=== PATIENT | female | born 2000 | race Caucasian/White ===

== ENCOUNTER 2023-03-22 14:41 | Emergency (ER) | payer OTHER, SELFPAY ==
[2023-03-22 14:43] VITALS: BP 123/79; PULSE 96; RESP 18; TEMP 36.1; O2SAT 99; BMI 21.3
--- NOTE | 2023-03-22 15:30 | EDS_ITS ---
HPI HPI - GI History of Present Illness Chief Complaint: Flank Pain Informant: patient Narrative Narrative: Patient is a 22-year-old female presenting with right-sided flank pain. Patient was diagnosed via telehealth for a UTI 2 days ago. She was started on Macrobid. She initially went to [facility] but they thought her some of her symptoms started more like COVID and she had a positive COVID test. Those symptoms started 1 week ago. Because of this they would not evaluate her for her UTI and recommended the telehealth appointment. Patient states she has been taking the Macrobid but has continued to have dysuria, frequency, urgency, sensation of incomplete emptying and is now developing some right flank pain. She was told on telemetry with appointment that if she develops flank pain or shortness of breath she should go to emergency room. She initially went to urgent care today with and they instructed her to come to our emergency room. These UTI symptoms and going on for about 2 weeks. Patient states normally if the symptoms start they will self resolve after couple days. She denies any new fever. She was to have a fever about a week ago when her COVID symptoms were started. Denies any blood in her urine. Denies any abnormal vaginal discharge. She is on oral contraceptives is on the last day of that before she starts taking the placebo week. She does not think she is . Denies any associated rash. Denies any nausea, vomiting or bowel changes. She notes that she has had some mild sensation of not taking a deep breath and getting more winded when she walks up or 4 flights of stairs to get to her dormitory room but states she had similar symptoms like this the last time she had COVID as well. She does have an inhaler that she uses as needed. [facility] Medical History Kidney stones Home Medications sulfamethoxazole 800 mg-trimethoprim 160 mg tablet (Bactrim DS) 1 tab PO BID 10 days #20 tabs 03/22/23 [Rx Last Taken Unknown] Allergy/AdvReac Type Severity Reaction Status Date / Time cefdinir [From Omnicef] Allergy Swelling Verified 03/22/23 14:44 Family History Grandfather Cancer Surgical History no surgical history Social History household members: friend(s) housing: other current occupational status: student Smoking Status: Never smoker ROS ROS ED Constitutional Constitutional ED: Denies chills or fever(s) Cardiovascular Cardiovascular: Denies chest pain Respiratory/Chest Respiratory/Chest: Denies cough Gastrointestinal Gastrointestinal: Reports abdominal pain; Denies constipation, diarrhea, nausea or vomiting Genitourinary Genitourinary ED: Reports dysuria and urinary frequency; Denies hematuria Musculoskeletal Musculoskeletal: Denies arthralgias or myalgias Integumentary Denies rash Neurologic Neurologic: Denies headache(s) Psychiatric Psychiatric: Denies anxiety Hematologic/Lymphatic Hematologic/Lymphatic: Denies easy bleeding EXAM Physical Exam Const Vital Signs: 03/22/23 14:43 Temperature 97 F L Temperature Source Temporal Pulse Rate 96 Respiratory Rate 18 Blood Pressure 123/79 H Blood Pressure Mean 93 Pulse Ox 99 Oxygen Delivery Method Room Air Positive well nourished and well developed General Appearance ED: well developed and NAD Eyes PERRL and EOMs intact bilaterally Neck supple Resp normal respiratory effort and clear to auscultation bilaterally Auscultation: Negative for rhonchi or wheezes Cardio regular rate, regular rhythm and no murmurs GI non-tender Auscultation: normoactive bowel sounds Palpation: soft; Negative for guarding or rigid Back/Spine no CVA tenderness Back/Spine Narrative: Patient points just below her right CVA as the area of her pain however it is not reproducible with direct palpation Extremity full ROM General Extremety ED: Negative for edema General Extremity: Negative for edema Neuro moves all extremities Sensorium / Orientation: alert Psych mental status grossly normal and thought process normal Skin no wounds Rashes: no rashes MDM MDM MDM Narrative Medical decision making narrative: Patient evaluated for developing right flank pain in the setting of clinically diagnosed UTI via telehealth. She has been on not quite 48 hours of Macrobid. Vital signs are normal. Patient examined. Benign. She does not have a leukocytosis, SHANIA or significant electrolyte derangement. Her testing is mildly low at 3.3 which is informed and counseled to add in some more high potassium food to her diet. Urinalysis is consistent with UTI. In the setting of flank pain will treat for pyelonephritis and switch from Macrobid to Bactrim (has an allergy to cephalosporins). Is given first dose in the emergency room. Given r eturn precautions. Is given Toradol for pain control with improvement. Is instructed to alternate ibuprofen and Tylenol for symptom relief. Presentation is not consistent with an obstructing stone and I do not think she requires imaging of the kidneys at this time. Patient did test positive for COVID a week ago I do not think her presentation is a complication from COVID infection. Lab Data Attestation: I reviewed the patient's lab results. Labs: Laboratory Results - last 24 hr 03/22/23 03/22/23 14:55 16:00 WBC 6.5 RBC 4.04 L Hgb 12.3 Hct 36.0 L MCV 89.1 MCH 30.4 MCHC 34.2 RDW Std Deviation 37.6 RDW Coeff of Mily 11.6 Plt Count 287 MPV 9.9 Immature Gran % (Auto) 0.200 Neut % (Auto) 63.2 Lymph % (Auto) 28.3 [place] % (Auto) 7.5 Eos % (Auto) 0.5 Baso % (Auto) 0.3 Absolute Neuts (auto) 4.1 Absolute Lymphs (auto) 1.84 Nucleated RBC % 0 Sodium 137 Potassium 3.3 L Chloride 105 Carbon Dioxide 27.0 Anion Gap 5 BUN 8 Creatinine 0.82 Estim Creat Clear Calc 101.60 Est GFR (MDRD) Af Amer 112 Est GFR (MDRD) Non-Af 93 BUN/Creatinine Ratio 9.7 L Glucose 101 Calcium 9.0 Total Bilirubin 0.50 AST 16 ALT 26 Alkaline Phosphatase 92 Total Protein 7.8 Albumin 3.2 Globulin 4.6 H Albumin/Globulin Ratio 0.7 L Urine Color Yellow Urine Clarity Sl. Cloudy Urine pH 6.5 Ur Specific [place] 1.010 Urine Protein 30 H Urine Glucose (UA) Normal Urine Ketones Negative Urine Occult Blood 10 H Urine Nitrite Negative Urine Bilirubin Negative Urine Urobilinogen Normal Ur Leukocyte Esterase 500 H Urine RBC 0-5 SEEN Urine WBC 5-10 SEEN Ur Squamous Epith Cells 0-5 SEEN Calcium Oxalate Crystal RARE Urine Bacteria RARE Urine Mucus RARE Urine Test Negative Discharge Plan Triage Chief Complaint: Flank Pain ED Provider: Shahnaz Oliveira Dx/Rx/DC Orders Clinical Impression: Pyelonephritis of right kidney Instructions: ED Pyelonephritis, Female (Adult) Prescriptions: New sulfamethoxazole-trimethoprim [Bactrim DS] 800-160 mg tablet 1 tab PO BID 10 Days Qty: 20 0RF Primary Care Provider: Care Physician,No Primary Referrals: Jordan Lockwood MD [Med Staff - Telephone Service Adviser] - As Needed Care Physician,No Primary [Primary Care Provider] - Activity Restrictions/Additional Instructions: stop taking the Macrobid and start taking this antibiotic instead (Bactrim). It is only twice a day. Drink pleanty of fluids and eat fruits/vegetables with high potassium and his potassium was mildly low. Disposition Disposition: Home, Self Care
[2023-03-22 15:33] LABS: Absolute Lymphocyte Count 1.84 X10^3/uL (0.83-4.51); Absolute Neutrophil Count 4.1 X10^3/uL (2.0-7.7); Basophil# 0.02 X10^3/uL; Basophil% 0.3 % (0-1); Eosinophil# 0.03 X10^3/uL; Eosinophils% 0.5 % (0-5); Hemoglobin 12.3 g/dL (12.0-15.0); Lymphocyte # 1.84 X10^3/ul (0.83-4.51); Lymphocyte % 28.3 % (19-41); Mean Corp Hgb Conc 34.2 g/dL (32-36); Mean Corpuscular Hgb 30.4 pg (27.0-32.0); Mean Corpuscular Volume 89.1 fL (81-99); Mean Platelet Vol. 9.9 fl (6.2-12.0); Monocyte# 0.49 X10^3/uL; Monocyte% 7.5 % (0-10); NRBC Flagged by Analyzer 0 % (0-5); Neutrophil # 4.12 X10^3/uL (2.7-7.7); Neutrophil % 63.2 % (47-70); Platelet Count 287 K/mm3 (150-450); RBC Distribution Width CV 11.6 % (11.6-14.6); RBC Distribution Width SD 37.6 fl (35.1-43.9); Red Blood Count 4.04 M/mm3 (4.2-5.4); White Blood Count 6.5 K/mm3 (4.4-11.0)
[2023-03-22 15:42] LABS: ALB/GLOB Ratio 0.7 RATIO (0.9-2.4); AST(SGOT) 16 U/L (15-37); Alanine Aminotransfer ALT/SGPT 26 U/L (13-56); Albumin, Serum 3.2 g/dL (3.2-5.0); Alkaline Phosphatase 92 U/L (45-117); Anion Gap 5 (5-15); BUN 8 mg/dL (7-18); BUN/Creat Ratio 9.7 RATIO (10-20); Chloride 105 mmol/L (98-107); Creatinine, Serum 0.82 mg/dL (0.55-1.02); EST Glomerular Filtration Rate 93 mL/min (>60); Est Glom Filt Rate - Afr Amer 112 mL/min (>60); Globulin 4.6 g/dL (2.2-4.2); Glucose 101 mg/dL (74-106); Potassium 3.3 mmol/L (3.5-5.1); Protein, Total 7.8 g/dL (6.4-8.2); Sodium Level 137 mmol/L (136-145)
[2023-03-22] MEDS: Ketorolac 15 MG/ML Vial IV (16:30)
[2023-03-22 16:33] LABS: Color, Urine Yellow (Yellow); Glucose, Dipstick Normal (Normal); Ketone-Dipstick Negative (Negative); Leukocyte Esterase-Dipstick 500 /ul (Negative); Nitrite-Dipstick Negative (Negative); Occult Blood-Urine 10 /ul (Negative); Protein-Dipstick 30 mg/dl (Negative); Urine Bilirubin Dipstick Negative (Negative); Urine Clarity Sl. Cloudy (Clear); Urine Urobilinogen Normal (Normal); Urine pH 6.5 (5.0 - 8.0)
[2023-03-22 16:39] LABS: Internal QC Validated? YES +Cl - CLEAR BKGD; Pregnancy, Urine Negative Negative; Record Kit Lot#,Urine Preg HCG0000667200
[2023-03-22 16:54] LABS: Red Blood Cells-Urine 0-5 SEEN /hpf (0-5); Squamous Epithelial Cells - UA 0-5 SEEN /hpf (5-10); White Blood Cells 5-10 SEEN /hpf (0-5)
[2023-03-22 16:55] LABS: Bacteria RARE /hpf (None Seen); Calcium Oxalate Crystals Ur RARE /hpf (<or=2+); Mucous, Urine RARE /hpf (<or=2+)
[2023-03-22] MEDS: Smz/Tmp Ds Tablet 1 TABLET PO (18:05)
[2023-03-22 18:10] VITALS: RESP 16
== END 2023-03-22 18:11 | disposition home or self-care (01) ==
PROVIDERS: Emergency Provider Emergency Medicine; Visit Provider Emergency Medicine
DX: N12 Tubulo-interstitial nephritis, not specified as acute or chronic (principal)
CPT/HCPCS: 80053; 81001; 81025; 85025; 87086; 96374; 99283; A4216